=== PATIENT | female | born 1960 | race Caucasian/White ===

== ENCOUNTER → 2019-05-05 11:03 | Outpatient (CLI) | payer BC, SELFPAY | PROVIDERS: Visit Provider Nurse Practitioner | DX: N89.8 Other specified noninflammatory disorders of vagina (principal); R35.0 Frequency of micturition | CPT/HCPCS: 87086; 87210 ==

== ENCOUNTER 2023-12-24 10:22 | Emergency (ER) | payer MEDICARE, OTHER, SELFPAY ==
[2023-12-24] VITALS (15 sets, daily range): BP systolic 153–176; BP diastolic 78–130; PULSE 70–86; RESP 14–24; TEMP 36.5; O2SAT 95–100; BMI 24.7
--- NOTE | 2023-12-24 10:30 | DI.RAD.S_ITS ---
PROCEDURE: XR CHEST 1V INDICATIONS: chest pain TECHNIQUE: One view of the chest was acquired. COMPARISON: None. FINDINGS: Surgical changes and devices: Right port catheter terminates in the mid SVC. Left chest wall clips Lungs and pleura: No dense consolidation or pleural effusion. Mediastinum: Normal heart size Bones and chest wall: Unremarkable IMPRESSION: No acute radiographic abnormality on this single view study. Dictated by: Jose Francisco Burnham M.D. on 12/24/2023 at 10:59 Approved by: Jose Francisco Burnham M.D. on 12/24/2023 at 10:59
--- NOTE | 2023-12-24 10:30 | EKG_ITS ---
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
[2023-12-24 10:45] LABS: Add Manual Diff / Slide Review NO; Basophils Absolute Auto 100 /uL (0-100); Basophils Percent Auto 0.7 % (0-2); Eosinophils Absolute Auto 300 /uL (0-450); Eosinophils Percent Auto 3.2 % (2-4); Hematocrit 44.7 % (36-46); Hemoglobin 15.1 g/dL (12.0-16.0); Lymphocytes Absolute Auto 2000 /uL (1100-4500); Lymphocytes Percent Auto 25.2 % (25-40); Mean Corpuscular HGB Conc 33.8 % (30-36); Mean Corpuscular Hemoglobin 30.9 PG (26-34); Mean Corpuscular Volume 91.3 fL (80-100); Monocytes Absolute Auto 700 /uL (0-900); Monocytes Percent Auto 8.8 % (3-14); Neutrophils Absolute Auto 4900 /uL (1500-7000); Neutrophils Percent Auto 62.1 % (50-75); Platelet Count 305 X10^3/uL (150-400); Red Cell Distribution Width 13.8 % (11.6-14.8)
[2023-12-24 10:53] LABS: Prothrombin Time 11.1 SECONDS (9.4-12.5)
[2023-12-24 10:56] LABS: PTT Partial Thromboplastin Tim 30 SECONDS (25.1-36.5)
[2023-12-24 10:59] LABS: Alanine Aminotransferase 41 IU/L (<35); Albumin 4.2 g/dL (3.5-5.0); Albumin Globulin Ratio 1.4 (1.0-2.8); Alkaline Phosphatase 79 U/L (38-126); Aspartate Aminotransferase 46 IU/L (14-36); BUN Creatinine Ratio 22.4 (6-22); Bilirubin Total 0.6 mg/dL (0.2-1.3); Blood Urea Nitrogen 15 mg/dL (7-17); Calcium 9.3 mg/dL (8.4-10.2); Carbon Dioxide 20 mmol/L (22-32); Chloride 109 mmol/L (98-107); Creatine Kinase 57 U/L (30-135); Estimated Glomerular Filt Rate > 60 mL/min (>60); Globulin 3.1 g/dL (1.7-4.1); Glucose 99 mg/dL (80-110); HEMOLYSIS 37 (0-50); Lipase 146 U/L (23-300); Magnesium 2.3 mg/dL (1.6-2.3); Potassium 4.2 mmol/L (3.4-5.1); Sodium 138 mmol/L (137-145); Total Protein 7.3 g/dL (6.3-8.2)
[2023-12-24 11:11] LABS: NT-proBNP (BNP-Adult 18+) < 20 pg/mL (<125); Troponin I < 0.012 ng/mL (0.01-0.034)
--- NOTE | 2023-12-24 11:30 | ED_ITS ---
HPI - Chest Pain General Chief Complaint: Chest Pain Stated Complaint: Mild chest pain Time Seen by Provider: 12/24/23 10:34 Source: patient Mode of arrival: Ambulatory Limitations: no limitations History of Present Illness HPI narrative: 63-year-old female with history of breast cancer diagnosed 6 months ago in her home state of [place] where she had initial lumpectomy, and 3 weeks initial chemotherapy via right chest port, seasonally is staying in the [facility], coordinating her radiation treatment therapy through Oncology at [facility], ongoing Herceptin infusions every 2 weeks, due soon, now with 2 days duration intermittent left anterior chest pain, short duration of symptoms, no associated diaphoresis or nausea or vomiting, nonradiating, resolves without specific treatment. She does not take aspirin daily. No known history of coronary artery disease. No known history of blood clots to legs or lungs. She denies pain and/or swelling to the arms and legs. No injury trauma new activity. No recent coughing fevers chills, denies shortness of breath. Denies palpitations or heart racing symptoms. Related Data Home Medications Medication Instructions Recorded Confirmed cranberry extract [Ellura] PO 05/05/19 05/05/19 metronidazole vaginal 05/05/19 05/05/19 Allergies Allergy/AdvReac Type Severity Reaction Status Date / Time No Known Drug Allergies Allergy Verified 12/24/23 10:31 Review of Systems Review of Systems Narrative: See HPI Patient History Social History Smoking Status: Never smoker Smoking Status: Never smoker alcohol intake frequency: 0-2 drinks per day Substance Use Type: marijuana Exam Narrative Exam Narrative: GENERAL: Well-developed patient, in mild distress. HEAD: Atraumatic. Normocephalic. EYES: Pupils equal round and reactive. Extraocular motions intact. No scleral icterus. No injection or drainage. ENT: Nose without bleeding, purulent drainage. Throat without erythema, tonsillar hypertrophy or exudate. Airway patent. NECK: Trachea midline. Non tender CARDIOVASCULAR: Regular rate and rhythm without murmurs, gallops, or rubs. RESPIRATORY: Clear to auscultation. Breath sounds equal bilaterally. No wheezes, rales, or rhonchi. Right anterior chest Port-A-Cath. Left anterior chest without tenderness GASTROINTESTINAL: Abdomen soft, non-tender, nondistended. EXTREMITIES: No edema or joint tenderness. BACK: Nontender without deformity or crepitance. No flank tenderness. NEURO: AOx3. SKIN: No rash or erythema of visible areas Initial Vital Signs Initial Vital Signs: Vital Signs Temperature 97.7 F 12/24/23 10:23 Pulse Rate 86 12/24/23 10:23 Respiratory Rate 14 12/24/23 10:23 Blood Pressure 174/130 H 12/24/23 10:23 Pulse Oximetry 99 12/24/23 10:23 Oxygen Delivery Method Room Air 12/24/23 10:23 Course Orders Ordered: ED Orders 12/24/23 12:55 Troponin I Stat Discontinued Medications Aspirin (Aspirin 81 Mg Chew Tab) 324 mg PO NOW ONE Stop: 12/24/23 10:31 Last Admin: 12/24/23 11:36 Dose: Not Given Documented By: GISSELL Aspirin (Aspirin 81 Mg Chew Tab) 324 mg PO NOW ONE Stop: 12/24/23 11:31 Last Admin: 12/24/23 11:36 Dose: 324 mg Documented By: GISSELL Vital Signs Vital signs: Vital Signs - 8 hr 12/24/23 13:00 12/24/23 13:00 12/24/23 13:30 Pulse Rate 74 77 Respiratory Rate 18 24 Blood Pressure 168/93 H Pulse Oximetry 98 100 12/24/23 13:32 12/24/23 13:32 12/24/23 13:53 Pulse Rate 75 78 Respiratory Rate 24 24 Blood Pressure 159/78 H Pulse Oximetry 100 98 12/24/23 13:54 Pulse Rate Respiratory Rate Blood Pressure 162/79 H Pulse Oximetry MDM - Chest Pain Lab Data Attestation: I reviewed the patient's lab results. 12/24/23 10:35 12/24/23 10:35 Labs: Lab Results 12/24/23 12/24/23 Range/Units 10:35 12:55 WBC 8.0 (4.5-11.0) X10^3/uL RBC 4.90 (4.0-5.2) X10^6/uL Hgb 15.1 (12.0-16.0) g/dL Hct 44.7 (36-46) % MCV 91.3 (80-100) fL MCH 30.9 (26-34) PG MCHC 33.8 (30-36) % RDW 13.8 (11.6-14.8) % Plt Count 305 (150-400) X10^3/uL Neut % (Auto) 62.1 (50-75) % Lymph % (Auto) 25.2 (25-40) % [place] % (Auto) 8.8 (3-14) % Eos % (Auto) 3.2 (2-4) % Baso % (Auto) 0.7 (0-2) % Neut # (Auto) 4900 (8837-5974) /uL Lymph # (Auto) 2000 (3537-5825) /uL [place] # (Auto) 700 (0-900) /uL Eos # (Auto) 300 (0-450) /uL Baso # (Auto) 100 (0-100) /uL PT 11.1 (9.4-12.5) SECONDS INR 1.0 (0.9-1.3) APTT 30 (25.1-36.5) SECONDS D-Dimer 397 (<500) ng/ml Sodium 138 (137-145) mmol/L Potassium 4.2 (3.4-5.1) mmol/L Chloride 109 H (98-107) mmol/L Carbon Dioxide 20 L (22-32) mmol/L BUN 15 (7-17) mg/dL Creatinine 0.67 (0.52-1.04) mg/dL Estimated GFR > 60 (>60) mL/min BUN/Creatinine Ratio 22.4 H (6-22) Glucose 99 (80-110) mg/dL Calcium 9.3 (8.4-10.2) mg/dL Magnesium 2.3 (1.6-2.3) mg/dL Total Bilirubin 0.6 (0.2-1.3) mg/dL AST 46 H (14-36) IU/L ALT 41 H (<35) IU/L Alkaline Phosphatase 79 (38-126) U/L Total Creatine Kinase 57 (30-135) U/L Troponin I < 0.012 < 0.012 (0.01-0.034) ng/mL NT-Pro-B Natriuret Pep < 20 (<125) pg/mL Total Protein 7.3 (6.3-8.2) g/dL Albumin 4.2 (3.5-5.0) g/dL Globulin 3.1 (1.7-4.1) g/dL Albumin/Globulin Ratio 1.4 (1.0-2.8) Lipase 146 (23-300) U/L Imaging Data Chest x-ray: Radiologist's Impression: [address] [address] XRay Report Signed Patient: Renetta Conn MR#: [id number] : 1960 Acct:[id number] Age/Sex: 63 / F Date of Service: 12/24/23 Loc: ED Accession Number: [id number] Procedure: XR chest 1V Ordering Provider: Manuelito Moseley MD PROCEDURE: XR CHEST 1V INDICATIONS: chest pain TECHNIQUE: One view of the chest was acquired. COMPARISON: None. FINDINGS: Surgical changes and devices: Right port catheter terminates in the mid SVC. Left chest wall clips Lungs and pleura: No dense consolidation or pleural effusion. Mediastinum: Normal heart size Bones and chest wall: Unremarkable IMPRESSION: No acute radiographic abnormality on this single view study. Dictated by: Jose Francisco Burnham M.D. on 12/24/2023 at 10:59 Approved by: Jose Francisco Burnham M.D. on 12/24/2023 at 10:59 ECG Data Attestation: I personally reviewed and interpreted this ECG as follows: Interpretation: Normal sinus rhythm with rate of 73, no obvious ST segment elevation or depression changes. KS 152, QRS 88, QTC 442. MDM Narrative Medical decision making narrative: 63-year-old female without known history of CAD, recent breast cancer treatment with lumpectomy and chemotherapy, ongoing radiation therapy, with intermittent left anterior chest pain, not currently having any chest pain. DDx consider ACS, RAMESH, radiation costochondritis, pulmonary embolus, lower lobe infiltrate, gastritis, gastroesophageal reflux, pancreatitis, other. Screening EKG without obvious ischemic changes. Oral aspirin given. Chest x-ray negative. D-dimer negative. Interval repeat troponin also negative. Further workup advised as an outpatient for now. Discharged home, encouraged to take aspirin daily. Return precautions discussed. Follow up with her oncologist and chemotherapy regimen as planned Critical Care Time Critical Care Time Critical Care Time: Yes Total Critical Care Time: 31 Attestation: The high probability of a clinically significant, sudden or life threatening deterioration of the [cardiopulmonary, hematologic, cardiovascular] system(s) required my full and direct attention, intervention and personal management. The aggregate critical care time was [31] minutes. This time is in addition to time spent performing reported procedures but includes the following: [x] Data Review and interpretation [x] Patient assessment and monitoring of vital signs [x] Documentation [x] Medication orders and management Discharge Plan Departure Patient Disposition: Home Clinical Impression: Chest pain Activity Restrictions/Additional Instructions: Chest discomfort of unclear cause. EKG and blood testing not suggestive of heart attack at this time. Chest x-ray unremarkable. Screening labs otherwise unremarkable. We included D-dimer testing, which can screen for abnormal clotting, urine was negative, it would be unusual to have abnormal clotting such as blood clots to the lungs causing your chest pain, and still have a normal D- dimer. Consider taking aspirin daily if not already taking this. Consider radiation irritation to the tissues, costochondritis although you had no tenderness on exam, and/or to underlying structures select to the esophagus. You might also have an unrelated non radiation exposure cause of your symptoms such as gastroesophageal reflux. Trial of an [id number] antacid Pepcid would not be harmful and could be helpful. Further testing cardiac testing as an outpatient for now. Contact information given for local clinical neuropsychologist on-call if he did not have your own clinical neuropsychologist. Follow up with your oncologist as planned. Return to this/nearest emergency department for any change worsening symptoms or any concerns prior Prescriptions: No Action cranberry extract PO metronidazole VAG Referrals: Jose Lopez MD [Physician] - Stand Alone Forms: Patient Portal/API
[2023-12-24] MEDS: ASPIRIN 81 MG CHEW TAB 324 MG PO (11:36)
[2023-12-24 11:52] LABS: D Dimer 397 ng/ml (<500)
[2023-12-24 13:44] LABS: Troponin I < 0.012 ng/mL (0.01-0.034)
== END 2023-12-24 14:16 | disposition home or self-care (01) ==
PROVIDERS: Emergency Provider Emergency Medicine
DX: R07.9 Chest pain, unspecified (principal); C50.919 Malignant neoplasm of unspecified site of unspecified female breast
CPT/HCPCS: 36415; 71045; 80053; 82550; 83690; 83735; 83880; 84484; 85025; 85379; 85610; 85730; 93005; 99284

== ENCOUNTER → 2024-02-12 08:46 | Outpatient (CLI) | payer MEDICARE, OTHER, SELFPAY ==
--- NOTE | 2024-02-12 | DI.MG.S_ITS ---
BILATERAL DIGITAL DIAGNOSTIC MAMMOGRAM 3D/2D POST LUMPECTOMY: 02/12/2024 CLINICAL: Post Left breast lumpectomy. Comparison is made to exams dated: 05/20/2023 mammogram and 06/04/2023 mammogram - outside facility. There are scattered areas of fibroglandular density (category b / 25%-50% glandular tissue). The left breast has post-operative findings. There is a biopsy site marker on the left breast upper outer quadrant. No significant masses, calcifications, or other findings are seen in either breast. IMPRESSION: BENIGN There is no mammographic evidence of malignancy. Expected post operative changes in the left breast. A 1 year screening mammogram is recommended; however, shorter interval surveillance can be considered at the direction of treating oncologic/surgical team. Findings and recommendations were conveyed to the patient during today's evaluation. This exam was interpreted at Station ID: [id number]. NOTE: For mammograms, a report in lay terms will be sent to the patient. Approximately 15% of breast malignancies will not be visualized mammographically. In the management of a palpable breast mass, a negative mammogram must not discourage biopsy of a clinically suspicious lesion. Electronically Signed By: Rudi Victoria M.D. aty/:02/12/2024 09:35:51 letter sent: Normal Exam ACR BI-RADS Category 2: Benign
== END ==
LOC: MAMMO 08:47
PROVIDERS: Referring Provider Internal Medicine; Visit Provider Internal Medicine
DX: C50.812 Malignant neoplasm of overlapping sites of left female breast; Z17.1 Estrogen receptor negative status [ER-]
CPT/HCPCS: 77066; G0279

== ENCOUNTER → 2024-03-03 14:26 | Outpatient (CLI) | payer MEDICARE, OTHER, SELFPAY ==
[2024-03-03 16:41] LABS: Hemoglobin A1C% w Est Avg Glu 5.6 % (4.0-6.0)
== END ==
PROVIDERS: Referring Provider Podiatrist Foot & Ankle Surgery; Visit Provider Podiatrist Foot & Ankle Surgery
DX: G62.89 Other specified polyneuropathies (principal); R73.03 Prediabetes
CPT/HCPCS: 36415; 83036

== ENCOUNTER → 2024-12-10 10:11 | Outpatient (CLI) | payer MEDICARE, OTHER, SELFPAY ==
--- NOTE | 2024-12-10 10:18 | DI.MG.S_ITS ---
MM diagnostic mammo BI, US breast LT limited: 12/10/2024 BI-RADS: 2 CLINICAL: 64-year old female for bilateral diagnostic mammogram and left diagnostic breast ultrasound. The patient presents for routine post-lumpectomy imaging; diagnostic exam is performed as requested by the referring MD. No Tyrer-Cuzick risk score calculation due to the patient's personal history of breast cancer. Patient reports a history of left breast carcinoma diagnosed at age 63. Status-post left lumpectomy with radiation therapy and chemotherapy. PRIOR EXAMS 02/12/2024, 06/04/2023, 05/20/2023. MAMMOGRAPHY TECHNIQUE: 2D and 3D (tomosynthesis) digital mammographic views obtained, with additional images as needed for full coverage. Current study was also evaluated with a Computer Aided Detection (CAD) system. ULTRASOUND TECHNIQUE TARGETED Left Breast Ultrasound: Real-time ultrasound exam was performed focused to area of clinical and/or imaging concern. Real-time ridley scale and color doppler imaging of the area of clinical interest was performed with image documentation. DENSITY B. There are scattered areas of fibroglandular density. MAMMOGRAPHY FINDINGS Right: No suspicious mass, asymmetry, microcalcification, or other abnormality seen. Left (finding-1): Lower Central, Posterior depth: There is a stable focal asymmetry present. This likely represents a postoperative fluid collection at the lumpectomy site. Left: Biopsy marker present on the left. Benign-appearing post-surgical changes noted on the left. There are no suspicious masses, calcifications, or other findings in the breast. ULTRASOUND FINDINGS Left (finding-1): Lower Outer at 4:00, 7 cm from nipple, measuring 0.8 x 2.3 x 2.9 cm: Correlating with findings on mammogram there is a seroma. IMPRESSION: Right * No evidence of malignancy. Left * No evidence of malignancy with benign findings. RECOMMENDATIONS Bilateral * Annual screening mammography. COMMENTS: Findings and recommendations were conveyed to the patient during today's evaluation. OVERALL ASSESSMENT CATEGORY BI-RADS-2: Benign. The [employer] recommends annual screening mammography beginning at age 40 for women with average risk of breast cancer. ELECTRONICALLY SIGNED: Magy Herring M.D. on 12/10/2024 at 12:14:58 PM PT Interpreting Station ID: [id number]
== END ==
PROVIDERS: Visit Provider Internal Medicine
DX: C50.912 Malignant neoplasm of unspecified site of left female breast (principal); C50.512 Malignant neoplasm of lower-outer quadrant of left female breast; L76.34 Postprocedural seroma of skin and subcutaneous tissue following other procedure; Z85.3 Personal history of malignant neoplasm of breast; Z17.1 Estrogen receptor negative status [ER-]
CPT/HCPCS: 76642; 77066; G0279